=== PATIENT | female | born 1990 | race Caucasian/White ===

== ENCOUNTER 2018-01-16 23:03 | Emergency (ER) | payer OTHER ==
[2018-01-16] MEDS ORDERED: Sodium Chloride 0.9% 1,000 ML IV ONE (23:19)
--- NOTE | 2018-01-16 23:26 | ED Physician Chart ---
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 Allergies:: Allergies Allergy/AdvReac Type Severity Reaction Status Date / Time No Known Allergies Allergy Verified 01/16/18 23:04 Vitals:: Vital Signs - 8 hr 01/16/18 23:05 Temp 99.2 F HR 85 RR 18 BP 126/78 O2 Sat % 100 Historian:: Patient, Family Member Review:: Nurse's Note Reviewed ED Review of Systems - Review of Systems General/Constitutional: No fever, No chills, No weight loss, No weakness, No diaphoresis, No edema, No loss of appetite Skin: No skin lesions, No rash, No bruising Head: No headache, No light-headedness Eyes: No loss of vision, No pain, No diplopia ENT: No earache, No nasal drainage, No sore throat, No tinnitus Neck: No neck pain, No swelling, No thyromegaly, No stiffness, No mass noted Cardio Vascular: No chest pain, No palpitations, No PND, No orthopnea, No edema Pulmonary: No SOB, No cough, No sputum, No wheezing GI: Nausea, Vomiting, Diarrhea, Pain, No melena, No hematochezia, No constipation, No hematemesis G/U: No dysuria, No frequency, No hematuria, 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, No abnormal vaginal bleed, No contraction Musculoskeletal: No bone or joint pain, No back pain, No muscle pain Endocrine: No polyuria, No polydipsia Psychiatric: No prior psych history, No depression, No anxiety, No suicidal ideation, No homicidal ideation, No auditory hallucination, No visual hallucination Hematopoietic: No bruising, No lymphadenopathy Allergic/Immuno: No urticaria, No angioedema Neurological: No syncope, No focal symptoms, No weakness, No paresthesia, No headache, No seizure, No dizziness, No confusion, No vertigo ED Past Medical History - Past Medical History Obtainable: Yes Past Medical History: No significant medical hx Family History: None Social History: Non Smoker, No Alcohol, No Drug Use, Surgical History: other (Right Tubal Abscess Surgery) Psychiatricy History: None Medication: Reviewed Family Medical History - Family Member Mother History Unknown: Yes Ethnicity: Living Status: Still Living ED Physical Exam - Physical Examination General/Constitutional: Awake, Well-developed, well-nourished, Alert, No distress, GCS 15, Non-toxic appearing, Ambulatory Head: Atraumatic Eyes: Lids, conjuctiva normal, PERRL, EOMI Skin: Nl inspection, No rash, No skin lesions, No ecchymosis, Well hydrated, No lymphadenopathy ENMT: External ears, nose nl, TM canals nl, Nasal exam nl, Lips, teeth, gums nl , Oropharynx nl, Tonsils nl Neck: Nontender, Full ROM w/o pain, No JVD, No nuchal rigidity, No bruit, No mass, No stridor Other Neck comments:: supple; no meningeal signs; no cervical tenderness; no bruits Respiratory: Nl effort/Exclusion, Clear to Auscultation, No Wheeze/Rhonchi/Rales Cardio Vascular: RRR, No murmur, gallop, rubs, NL S1 S2, Carotid/Femoral/Distal pulses equal bilaterally GI: No tenderness/rebounding/guarding, No organomegaly, No hernia, Normal BS's, Nondistended, No mass/bruits, No McBurney tenderness, Rectum exam nl Other GI comments:: no pulsatile masses; good Bowel Sounds : No CVA tenderness Other comments:: Pelvic Exam: deferred by pt Extremities: No tenderness or effusion, Full ROM, normal strength in all extremities, No edema, Normal digits & nails Neuro/Psych: Alert/oriented, DTR's symmetric, Normal sensory exam, Normal motor strength, Judgement/insight normal, Mood normal, Normal gait, No focal deficits Misc: Normal back, No paraspinal tenderness ED Labs/Radiology/EKG Results - Lab Results Comments:: U/A: + Pyuria - Radiology Results Comments:: + Cystic Right Adnexal Lesion ED Septic Shock - . Is Septic Shock (SBP<90, OR Lactate>4 mmol\L) present?: No - <6hrs of presentation: Vital Signs: Vital Signs - 8 hr 01/16/18 23:05 Temp 99.2 F HR 85 RR 18 BP 126/78 O2 Sat % 100 ED Reassessment (Disposition) - Reassessment Reassessment:: pt tolerated po fluids well in ER; pt is asymptomatic upon discharge Reassessment Condition:: Improved - Diagnosis Diagnosis:: Dx: Abdominal Pain; UTI; Right Adnexal Cyst; Fever; Abdominal/Pelvic Pain; Abdominal/Pelvic Pain-Resolved - Aftercare/Follow up Instructions Aftercare/Follow-Up Instructions:: Counseled pt regarding lab results/diagnosis & need follow up, Refer to Discharge Instructions, Counseled pt & family regarding lab results/diagnosis & need follow up Notes:: Encourage Fluids, especially citric acid juices Medication Prescribed:: Rx: Keflex 500mg po qid x 10 days; Tylenol 500mg po qid prn fever/pain - Patient Disposition Discharge/Transfer:: Home Condition at Disposition:: Stable, Improved (RTER prn if existing s/s reoccur and/or get worse and/or any other new s/s occur; X-Rays and U/S Care Instructions; ACIs given for all above Dx; Refer to OB-CHEMISTRY PROFESSOR Specialist/Urologist/ GI Surgeon/Program Checker BONI; F/U with PMD in one day or prn; RTER prn if concerned )
[2018-01-16 23:34] LABS: URINE SOURCE CLEAN C
[2018-01-16 23:41] LABS: % BASOPHILS 0.9 % (0.0-2.0); % EOSINOPHILS 1.4 % (0.0-5.0); % LYMPHOCYTES 29.4 % (20.0-50.0); % MONOCYTES 6.3 % (2.0-10.0); BASOPHILE ABSOLUTE 0.1 Th/cumm (0-0.2); EOSINOPHILE ABSOLUTE 0.1 Th/cmm (0.1-0.4); HEMOGLOBIN 14.2 gm/dL (12-16); LYMPHOCYTE ABSOLUTE 2.7 Th/cmm (1.5-3.0); MEAN CELL VOLUME 91.3 fl (81-100); MEAN CORPUSCULAR HEMOGLOBIN 31.7 pg (27.0-31.0); MEAN CORPUSCULAR HGB CONC 34.7 pg (28.0-36.0); MEAN PLATELET VOLUME 8.2 fl; MONOCYTE ABSOLUTE 0.6 Th/cmm (0.3-1.0); NEUTROPHILE ABSOLUTE 5.6 Th/cmm (1.8-8.0); PLATELET COUNT 316 Th/cmm (150-400); RED BLOOD COUNT 4.49 Mil/cmm (3.80-5.10); RED CELL DISTRIBUTION WIDTH 12.8 % (11.5-20.0); WHITE BLOOD COUNT 9.1 Th/cmm (4.8-10.8)
[2018-01-16 23:41] LABS: URINE BILIRUBIN NEGATIVE (NEGATIVE); URINE BLOOD TRACE (NEGATIVE); URINE GLUCOSE (UA) NEGATIVE (NEGATIVE); URINE KETONE NEGATIVE (NEGATIVE); URINE LEUKOCYTE ESTERASE TRACE (NEGATIVE); URINE MICROSCOPIC INDICATED? YES; URINE NITRATE NEGATIVE (NEGATIVE); URINE PROTEIN NEGATIVE (NEGATIVE); URINE UROBILINOGEN 0.2 E.U./dL (0.2 - 1.0)
[2018-01-16 23:53] LABS: URINE CLARITY CLEAR (CLEAR); URINE COLOR YELLOW
[2018-01-16 23:55] LABS: URINE RBC 0-2 /hpf (0-5); URINE WBC 0-2 /hpf (0-5)
[2018-01-16 23:56] LABS: URINE BACTERIA MODERATE /hpf (NONE SEEN); URINE EPITHELIAL CELLS MODERATE /lpf (FEW)
[2018-01-16 23:58] LABS: AMYLASE SERUM 41 U/L (29-103); ANION GAP 13.3 (7.0-16.0); BUN - UREA NITROGEN 13 mg/dL (7-25); CALCIUM SERUM 9.3 mg/dL (8.6-10.3); CARBON DIOXIDE 22.3 mEq/L (21.0-31.0); CHLORIDE 104 mEq/L (98-107); CREATININE - SERUM 0.7 mg/dL (0.6-1.2); GFR AFRICAN-AMERICAN > 60.0 ml/min (>90); GFR NON AFRICAN-AMERICAN > 60.0 ml/min; GLUCOSE 97 mg/dL (70-105); LIPASE 10 U/L (11-82); POTASSIUM SERUM 3.6 mEq/L (3.5-5.1); SODIUM SERUM 136 mEq/L (136-145)
[2018-01-17] MEDS ORDERED: cefTRIAXone 1 GM in Sodium Chloride 0.9% 50 ML IV ONE (00:08)
--- NOTE | 2018-01-17 08:50 | Diagnostic Imaging Report ---
Ultrasound pelvis HISTORY: Right lower quadrant Pain. LMP 01/07/2018. Beta hCG is negative. History of appendectomy. COMPARISON: CT abdomen and pelvis performed the same day Technique: Longitudinal and transverse sonographic sector images of the pelvis were obtained transabdominally and transvaginally. FINDINGS: Exam is limited due to body habitus and bowel gas. The uterus measures 6.4 x 3.7 x 3.5 cm. The uterus demonstrates a heterogeneous echotexture. There is suboptimal assessment the endometrial echo complex. The Endometrial complex roughly measures 4 mm. There is enlargement of the right adnexa measuring 5.2 x 2.4 x 4 cm demonstrating multiple cystic lesions the largest measuring 3.7 x 3.5 cm. Right sided hydrosalpinx cannot be excluded. Internal echoes are seen within the cystic areas. The left ovary measures 2.8 x 1.5 cm demonstrate multiple follicular cysts. Vascular flow to ovaries is noted. No free fluid in the pelvis. IMPRESSION: Limited exam due to body habitus and bowel gas. Right adnexal enlargement with multiple cystic lesions the largest measuring 3.7 x 3.5 cm with internal echoes possibly due to debris. Findings may represent proteinaceous or hemorrhagic cysts and possible septated cysts. Hydrosalpinx in this region cannot be excluded. A short-term follow-up ultrasound or CT abdomen and pelvis with IV contrast in 4-6 weeks is recommended to ensure resolution of these findings and exclude much less likely low-grade cystic neoplasm process. Bilateral adnexal follicular cystic changes
--- NOTE | 2018-01-17 09:07 | Diagnostic Imaging Report ---
CT abdomen and pelvis without intravenous contrast Indication: Abdominal pain Comparison: Ultrasound pelvis the same day, Technique: Axial images were obtained from the lung bases to the bilateral proximal femurs without IV contrast. Coronal reconstructions were made. total DLP: 419, CTDI9.3 FINDINGS: Hypoventilatory atelectatic changes of the lung bases are noted. Assessment of solid organs is limited that lack of IV contrast. Punctate calcification seen within the right lower liver. No radiopaque gallstones. No focal splenic or pancreatic lesions. No focal adrenal lesion. No evidence of hydronephrosis or nephrolithiasis. Postsurgical changes of right lower quadrant are noted. Cystic lesion is seen along the right adnexa measuring 4.8 x 2 cm. There is copious amount of stool throughout the colon. Nonspecific fluid-filled loops of small bowel are noted. No free air or free fluid. The osseous structures demonstrate no acute abnormalities. IMPRESSION: Right adnexal 4.8 x 2 cm cystic lesion. Please refer to follow-up ultrasound for further details. Postsurgical changes of the right lower quadrant with probable previous appendectomy. Please correlate clinically. Copious stool throughout the colon. Correlate clinically for constipation. Nonspecific fluid-filled loops of small bowel 4noted. No evidence of hydronephrosis.
== END 2018-01-17 04:10 | disposition home or self-care (01) ==
LOC: ER 23:03
DX: N83.201 Unspecified ovarian cyst, right side (principal); N39.0 Urinary tract infection, site not specified
CPT/HCPCS: 99285; 96365; 36415; 85025; 87086; 81001; 82150; 84703; 81025; 83690; 80048; 76856; 74176; J0696; J7030; Z7502